=== PATIENT | male | born 1995 | race Caucasian/White ===

== ENCOUNTER 2018-05-20 02:59 | Emergency (ER) | payer OTHER ==
[~2018-05-20] VITALS: Ht 182.9 cm; Wt 84.1 kg
[2018-05-20 02:59] VITALS: BP 140/79
[2018-05-20] MEDS ORDERED: APAP500T10 PO (03:03)
[2018-05-20] MEDS ORDERED: IBUP1TAB7 PO (03:03)
[2018-05-20] MEDS ORDERED: TIZA4CAP6 PO (03:05)
--- NOTE | 2018-05-20 04:10 | REPVR ---
EXAM: CT Lumbar Spine Without Contrast EXAM DATE/TIME: 05/20/2018 3:33 AM CLINICAL HISTORY: 23 years old, male; Injury or trauma; Fall; Initial encounter; Blunt trauma (contusions or hematomas); Additional info: Tr TECHNIQUE: Axial computed tomography images of the lumbar spine without intravenous contrast. All CT scans at this facility use at least one of these dose optimization techniques: automated exposure control; mA and/or kV adjustment per patient size (includes targeted exams where dose is matched to clinical indication); or iterative reconstruction. Coronal and sagittal reformatted images were created and reviewed. COMPARISON: No relevant prior studies available. FINDINGS: Vertebrae: No acute fracture. Normal alignment. Discs/Spinal canal/Neural foramina: No spinal stenosis. No neural foraminal narrowing. Soft tissues: Unremarkable. IMPRESSION: Negative CT lumbar spine. No fracture or subluxation is evident and no spinal or foraminal stenosis. Electronically signed by: Raymond Alicia On 05/20/2018 04:10:01 AM
[2018-05-20] MEDS ORDERED: METHOCARBAMOL 1,000 MG/10 ML VIAL (J2800) IM ONE (04:15)
[2018-05-20] MEDS ORDERED: HYDROMORPHONE HCL 0.5 MG/ 0.5 ML SYRINGE (J1170 PER 1) IM ONE (04:15)
== END 2018-05-20 04:41 | disposition home or self-care (01) ==
LOC: M ED 02:59
DX: M62.830 Muscle spasm of back (principal); Z79.899 Other long term (current) drug therapy; Z79.891 Long term (current) use of opiate analgesic; Z79.1 Long term (current) use of non-steroidal anti-inflammatories (NSAID)
CPT/HCPCS: 72131; 96372; 99282; J1170; J2800